=== PATIENT | male | born 1950 | race Asian ===

== ENCOUNTER 2017-05-25 13:43 | Emergency (ER) | payer MEDICARE ==
--- NOTE | 2017-05-25 16:21 | ED Physician Documentation ---
History of Present Illness - Stated complaint Stated Complaint: GLF - Chief complaint Chief Complaint: General - History obtained from History obtained from: Patient - History of Present Illness Timing: Other (5 DAYS AGO FELL OFF A GRILL ONTO HARD SURFACE AND PERSISTENT LOW NECK PAIN AND LEFT ELBOW PAIN) Review of Systems Constitutional: reports: Reviewed and negative Throat: reports: Reviewed and negative PD PAST MEDICAL HISTORY - Past Medical History Past Medical History: No - Past Surgical History Past Surgical History: No - Present Medications Home Medications: Ambulatory Orders Medication Instructions Recorded Confirmed No Known Home Medications [No 05/25/17 05/25/17 Known Home Medications] - Allergies Allergies/Adverse Reactions: Allergies Allergy/AdvReac Type Severity Reaction Status Date / Time No Known Drug Allergies Allergy Verified 05/25/17 14:19 - Social History Does the pt smoke?: Yes Smoking Status: Current every day smoker Does the pt drink ETOH?: Yes Does the pt have substance abuse?: No - Immunizations Immunizations are current?: No PD ED PE NORMAL - Vitals Vital signs reviewed: Yes - General General: Alert and oriented X 3, No acute distress - HEENT HEENT: PERRL, EOMI - Neck Neck: No bony TTP, Other (Muscular tenderness low to the posterior sternocleidomastoids bilaterally but no midline tenderness in the neck, no limited range of motion.) - Extremities Extremities: Other (Left elbow is mildly tender with some crepitance but he has full range of motion. No deformity.) - Neuro Neuro: Alert and oriented X 3, Normal speech Results - Vitals Vitals: Vital Signs - 24 hr 05/25/17 05/25/17 14:12 18:02 Temperature 36.8 C 37.3 C Heart Rate 103 H 88 Respiratory 18 12 Rate Blood Pressure 196/94 H 127/66 O2 Saturation 97 99 Oxygen O2 Source Room air - Rads (name of study) X-rays of the cervical spine and left elbow Radiology: EMP read contemporaneously (Degenerative changes without fracture) Departure - Departure Disposition: 01 Home, Self Care Clinical Impression: Neck sprain Qualifiers: Encounter type: initial encounter Qualified Code(s): S13.9XXA - Sprain of joints and ligaments of unspecified parts of neck, initial encounter Left elbow contusion Qualifiers: Encounter type: initial encounter Qualified Code(s): S50.02XA - Contusion of left elbow, initial encounter Condition: Good Record reviewed to determine appropriate education?: Yes Instructions: ED Sprain Strain Neck Comments: Your blood pressure was elevated today on check into the emergency department. This does not mean that you have hypertension, it is a common phenomenon to come to the emergency department and have elevated blood pressure. I recommend that you see your primary care physician within the week to have it rechecked when you are feeling better.
--- NOTE | 2017-05-25 17:50 | XRAY Report ---
EXAM: LEFT ELBOW RADIOGRAPHY EXAM DATE: 05/25/2017 05:28 PM. CLINICAL HISTORY: ELBOW PAIN. COMPARISON: None. TECHNIQUE: 3 views. FINDINGS: Bones: Normal. No fractures or bone lesions. Joints: There is mild spurring along the lateral epicondyle. There is satisfactory alignment and join t space. Soft Tissues: Normal. No soft tissue swelling. IMPRESSION: Mild lateral epicondyle spurring. No acute fracture or joint effusion. [facility] Referring Provider Line: [phone] SITE ID: [id number]
[2017-05-25 18:03] VITALS: BP 127/66
--- NOTE | 2017-05-25 18:05 | XRAY Preliminary Report ---
Exam: XR CERVICAL SPINE 2 VIEW IMPRESSION: 1. No acute fracture or dislocation of the cervical spine. 2. Multilevel diskogenic disease and facet arthrosis. Suspect mild grade 1 degenerative anterolisthes is C7 on T1. 3. Apparent levoscoliosis centered over the cervicothoracic junction. 4. Possible lower right neck swelling. [facility] SITE ID: [id number]
--- NOTE | 2017-05-25 18:06 | XRAY Report ---
EXAM: CERVICAL SPINE RADIOGRAPHY EXAM DATE: 05/25/2017 05:27 PM. CLINICAL HISTORY: Neck pain after fall 2 days ago. COMPARISONS: None. TECHNIQUE: 3 views. FINDINGS: Alignment: Slight grade 1 anterolisthesis C7 on T1. Levoconvex curvature centered over the cervicotho racic junction. Bones: The cervical vertebral bodies and posterior elements are well visualized from the skull base t hrough C7-T1. No acute fracture or bone destructive process. Intact odontoid process and posterior el ements. Disks/Facets: Moderately severe C5-C6 and C6-C7 disk height loss with mild endplate spurring. Multile roslyn moderate facet arthrosis. Soft Tissues: No prevertebral soft tissue swelling. Limited detail of the visualized lung apices due to bony overlap. Possible lower right neck swelling. Ligamentum nuchae calcification. IMPRESSION: 1. No acute fracture or dislocation of the cervical spine. 2. Multilevel diskogenic disease and facet arthrosis. Suspect mild grade 1 degenerative anterolisthes is C7 on T1. 3. Apparent levoscoliosis centered over the cervicothoracic junction. 4. Possible lower right neck swelling. [facility] Referring Provider Line: [phone] SITE ID: [id number]
== END 2017-05-25 18:36 | disposition home or self-care (01) ==
LOC: ED 13:43
DX: S13.9XXA Sprain of joints and ligaments of unspecified parts of neck, initial encounter (principal); S50.02XA Contusion of left elbow, initial encounter; W17.89XA Other fall from one level to another, initial encounter; F17.200 Nicotine dependence, unspecified, uncomplicated
CPT/HCPCS: 72040; 99283

== ENCOUNTER 2017-06-04 10:31 | Emergency (ER) | payer MEDICARE ==
--- NOTE | 2017-06-04 12:33 | ED Physician Documentation ---
History of Present Illness - Stated complaint Stated Complaint: LEFT SHOULDER PX - Chief complaint Chief Complaint: Ext Problem - History obtained from History obtained from: Patient - History of Present Illness Timing: How many days ago (10) Pain level max: 4 Pain level now: 1 - Additonal information Additional information: Patient is a 67-year-old male who was seen in the 10 days ago after a ground- level fall, landing on the left side, negative x-rays of the neck and elbow. Since that time his pain is improved, but does notice that night when he goes to lie down and go to sleep the pain increases, normally resolves with Tylenol. Better with rest, worse with movement. No numbness or tingling. No headache. No neck pain Review of Systems Constitutional: denies: Fever, Chills GI: denies: Vomiting Skin: denies: Rash Musculoskeletal: denies: Neck pain, Back pain Neurologic: denies: Focal weakness, Numbness, Headache PD PAST MEDICAL HISTORY - Past Medical History Past Medical History: No - Past Surgical History Past Surgical History: No - Present Medications Home Medications: Ambulatory Orders Medication Instructions Recorded Confirmed Meloxicam [Mobic] 15 mg PO DAILY PRN #20 tablet 06/04/17 - Allergies Allergies/Adverse Reactions: Allergies Allergy/AdvReac Type Severity Reaction Status Date / Time No Known Drug Allergies Allergy Verified 06/04/17 10:48 - Social History Does the pt smoke?: Yes Smoking Status: Current every day smoker Does the pt drink ETOH?: Yes Does the pt have substance abuse?: No - Immunizations Immunizations are current?: No PD ED PE NORMAL - Vitals Vital signs reviewed: Yes - General General: Alert and oriented X 3, No acute distress, Well developed/nourished - HEENT HEENT: Atraumatic, PERRL - Neck Neck: Supple, no meningeal sign, No bony TTP (No neck tenderness, no trapezial ridge tenderness. Full range of motion without pain.) - Cardiac Cardiac: RRR, Strong equal pulses - Respiratory Respiratory: No respiratory distress, Clear bilaterally - Back Back: No spinal TTP - Derm Derm: Warm and dry - Extremities Extremities: No deformity, No tenderness to palpate, Normal ROM s pain, Other ( Full range of motion of the left shoulder and left elbow without any pain. No swelling to the arm. Neurovascularly intact. Normal exam) - Neuro Neuro: Alert and oriented X 3, environmental education specialist 2-12 intact, No motor deficit, No sensory deficit, Normal speech - Psych Psych: Normal mood, Normal affect Results - Vitals Vitals: Vital Signs - 24 hr 06/04/17 06/04/17 10:40 12:44 Temperature 36.3 C L 37.2 C Heart Rate 86 92 Respiratory 16 18 Rate Blood Pressure 168/78 H 162/100 H O2 Saturation 98 98 Oxygen O2 Source Room air PD MEDICAL DECISION MAKING - ED course Complexity details: reviewed old records, considered differential, d/w patient ED course: Patient is a 67-year-old male who presents to the emergency department with continued left upper extremity pain. No bony tenderness. Appears to be muscular related. Neurovascularly intact. No tenderness over the shoulder, elbow, neck or humerus. Using the arm freely in the emergency department. Will prescribe a small amount of pain medication follow-up closely with his doctor. Patient counseled regarding signs and symptoms for which I believe and urgent re-evaluation would be necessary. Patient with good understanding of and agreement to plan and is comfortable going home at this time This document was made in part using voice recognition software. While efforts are made to proofread this document, sound alike and grammatical errors may occur. Departure - Departure Disposition: 01 Home, Self Care Clinical Impression: Muscle strain of upper extremity Qualifiers: Encounter type: initial encounter Laterality: left Qualified Code(s): S46.912A - Strain of unspecified muscle, fascia and tendon at shoulder and upper arm level, left arm, initial encounter Condition: Good Instructions: ED Strain Muscle Ext Follow-Up: your,doctor in 1 week [Other] Prescriptions: Meloxicam [Mobic] 15 mg PO DAILY PRN #20 tablet PRN Reason: pain Comments: Follow-up with your doctor for further care. Return if you worsen. You may need physical therapy prescribed by your doctor. Discharge Date/Time: 06/04/17 12:43
[2017-06-04 12:46] VITALS: BP 162/100
== END 2017-06-04 12:43 | disposition home or self-care (01) ==
LOC: ED 10:31
DX: S46.912A Strain of unspecified muscle, fascia and tendon at shoulder and upper arm level, left arm, initial encounter (principal); W18.30XA Fall on same level, unspecified, initial encounter; F17.200 Nicotine dependence, unspecified, uncomplicated
CPT/HCPCS: 99283